=== PATIENT | male | born 1955 | race Caucasian/White ===

== ENCOUNTER 2017-06-28 10:49 | Day surgery (SDC) | payer OTHER ==
[~2017-06-28] VITALS: Ht 162.6 cm; Wt 64.0 kg
[2017-06-28] MEDS ORDERED: LACTATED RINGERS 1,000 ML IV SCH (11:08)
[2017-06-28] MEDS ORDERED: DOCU240C53 PO (11:29)
[2017-06-28] MEDS ORDERED: HYDR-3276 PO (11:29)
[2017-06-28] MEDS ORDERED: ALBU2.5V11 NEB (11:29)
[2017-06-28] MEDS ORDERED: ALBU8TAB PO (11:29)
[2017-06-28] MEDS ORDERED: OMEP-110 PO (11:29)
[2017-06-28] MEDS ORDERED: SIMV80TA3 PO (11:29)
[2017-06-28] MEDS ORDERED: trazadone PO (11:29)
[2017-06-28] MEDS ORDERED: DIAZ5TAB4 PO (11:29)
[2017-06-28 11:40] VITALS: BP 148/89
[2017-06-28 12:16] LABS: ALANINE AMINOTRANSFERASE 13 U/L (12-78); ALBUMIN 3.4 g/dL (3.4-5.0); ANION GAP 8 mmol/L (5-15); CALCIUM 8.8 mg/dL (8.5-10.1); CHLORIDE 105 mmol/L (98-107); CREATININE 0.74 mg/dL (0.7-1.3)
[2017-06-28 12:19] LABS: ALKALINE PHOSPHATASE 98 U/L (45-117); BILIRUBIN,TOTAL 0.4 mg/dL (0.2-1.0); TOTAL PROTEIN 7.7 g/dL (6.4-8.2)
[2017-06-28] MEDS ORDERED: PROPOFOL 10 MG/ML, 20ML ONE (13:42)
[2017-06-28] MEDS ORDERED: HYDROcodone/APAP 7.5-325MG/15ML UDC PO PRN (14:00)
[2017-06-28] MEDS ORDERED: FENTANYL PF 100 MCG/2ML IV PRN (14:00)
[2017-06-28] MEDS ORDERED: ACETAMINOPHEN 325 MG TABLET PO PRN (14:00)
[2017-06-28] MEDS ORDERED: OXYcodone 5 MG/5 ML ORAL.SOL UDC PO PRN (14:00)
[2017-06-28] MEDS ORDERED: ONDANSETRON 2MG/ML, 2ML IVPush PRN (14:00)
== END 2017-06-28 16:10 | disposition home or self-care (01) ==
LOC: OUT 10:49
PROVIDERS: ATTEND Internal Medicine
DX: K62.89 Other specified diseases of anus and rectum (principal); J44.9 Chronic obstructive pulmonary disease, unspecified; Z85.048 Personal history of other malignant neoplasm of rectum, rectosigmoid junction, and anus; Z98.890 Other specified postprocedural states
CPT/HCPCS: 36415; 45380; 45391; 80053; 88305; 93005; J2704; J7120

== ENCOUNTER → 2018-03-22 | Outpatient (CLI) | payer OTHER ==
[~2018-03-22] MED LIST: ALBU2.5V11 NEB; ALBU8TAB PO; DIAZ5TAB4 PO; DOCU240C53 PO; HYDR-3276 PO; OMEP-110 PO; SIMV80TA7 PO; trazadone PO
== END | disposition home or self-care (01) ==
LOC: CFH 12:08
PROVIDERS: ATTEND Internal Medicine
DX: J43.9 Emphysema, unspecified (principal)
CPT/HCPCS: 71250